=== PATIENT | male | born 1940 | race Caucasian/White ===

== ENCOUNTER 2021-07-17 19:48 | Observation (INO) | payer OTHER, MEDICAID ==
[~2021-07-17] VITALS: Ht 172.7 cm; Wt 57.2 kg
[2021-07-17 19:50] VITALS: BP 136/76
[2021-07-17 20:14] LABS: URINE BLOOD 1+ (Negative); URINE COLOR YELLOW; URINE GLUCOSE-RANDOM NEGATIVE (Negative); URINE KETONES 2+ (Negative); URINE LEUKOCYTES-REFLEX NEGATIVE (Negative); URINE NITRITE-REFLEX NEGATIVE (Negative); URINE PROTEIN NEGATIVE (Negative); URINE SPECIFIC GRAVITY 1.025 (1.005-1.030)
[2021-07-17 20:15] LABS: ICTOTEST (BILI CONFIRMATORY) Negative (Negative); URINE BILIRUBIN 1+ (Negative)
[2021-07-17 20:16] LABS: URINE CLARITY HAZY
[2021-07-17 20:22] LABS: SQUAMOUS 0-3 Few /LPF (0-3)
[2021-07-17 20:23] LABS: BACTERIA-REFLEX None Seen /HPF (None Seen); CASTS None Seen /LPF (None Seen); CRYSTALS None Seen /LPF (None Seen); MUCUS 4-6 Moderate strn/LPF (None Seen); URINE RBC 0-2 Rare /HPF (0-2); URINE WBC-REFLEX None Seen /HPF (0-5)
[2021-07-17 20:32] LABS: ABSOLUTE LYMPHOCYTES 0.5 thou/uL (0.8-5.3); ABSOLUTE MONOCYTES 0.3 thou/uL (0.0-1.2); ABSOLUTE NEUTROPHILS 3.4 thou/uL (1.6-8.1); BASOPHILS 0.7 %; EOSINOPHILS 1.2 %; HEMATOCRIT 37.6 % (42.0-52.0); HEMOGLOBIN 12.2 gm/dL (14.0-18.0); LYMPHOCYTES 11.7 %; MCH 31.8 pg (26.0-34.0); MCHC 32.4 g/dL (28.0-37.0); MONOCYTES 6.7 %; MPV 7.6 fl. (7.2-11.1); NUCLEATED RBCS 0 /100WBC; PLATELET COUNT* 270 thou/uL (150-400); POLYS 79.7 %; RBC 3.84 mil/uL (4.50-6.00); RDW-CV 13.9 % (10.5-14.5); WBC 4.2 thou/uL (4.0-11.0)
[2021-07-17] MEDS ORDERED: FOLIC ACID1 MG PO (20:34)
[2021-07-17] MEDS ORDERED: ARICEPT10 M1 PO (20:34)
[2021-07-17] MEDS ORDERED: ACETAMINOPHEN650 M5 PO (20:34)
[2021-07-17] MEDS ORDERED: NAMENDA 5 MG TAB5 M1 PO (20:35)
[2021-07-17] MEDS ORDERED: SEROQUEL 25 MG25 M1 PO (20:36)
[2021-07-17] MEDS ORDERED: CHILDREN'S ASPI81 M1 PO (20:40)
[2021-07-17] MEDS ORDERED: FLOMAX0.4 MG PO (20:40)
[2021-07-17 20:41] LABS: CALCIUM 8.8 mg/dL (8.5-10.1); CREATININE 1.8 mg/dL (0.6-1.3); POTASSIUM 4.3 mmol/L (3.5-5.1)
[2021-07-17] MEDS ORDERED: SYMBICORT160 MCG/4. INH (20:41)
[2021-07-17] MEDS ORDERED: MELATONIN3 MG PO (20:46)
[2021-07-17] MEDS ORDERED: PROBIOTIC1 EAC7 PO (20:47)
[2021-07-17] MEDS ORDERED: DOXYCYCLINE 10100 M2 PO (20:47)
[2021-07-17] MEDS ORDERED: MUCINEX600 MG PO (20:48)
[2021-07-17 20:51] LABS: MAGNESIUM 2.2 mg/dL (1.8-2.4); TOTAL BILIRUBIN 0.5 mg/dL (<0.1-1.0); TOTAL PROTEIN 6.7 g/dL (6.4-8.2)
[2021-07-17 20:55] LABS: BE -1.4 mmol/L (-2 to +3); PCO2 45.3 mmHg (35.0-45.0)
[2021-07-17 20:59] LABS: PO2 306.9 mmHg (75.0-100.0)
--- NOTE | 2021-07-17 21:10 | NUR ---
SPOKE WITH PATIENT'S SON, INFORMING HIM OF CURRENT SITUATION. SON IS GOING TO COME UP TO THE EMERGENCY ROOM.
--- NOTE | 2021-07-17 22:31 | NUR ---
DR. RODRIGUEZ SPOKE WITH THE PATIENT'S FAMILY. FAMILY WANTS TO HONOR THE DNR/DNI. DR. RODRIGUEZ STATES TO FAMILY WE WILL EXTUBATE THE PATIENT AND SEE HOW THE PATIENT RESPONDS.
--- NOTE | 2021-07-17 23:27 | NUR ---
PT EXTUBATED WITHOUT COMPLICATION.
[2021-07-18 01:00] VITALS: BP 133/64
[2021-07-18 05:00] VITALS: BP 125/50
[2021-07-18 10:26] VITALS: BP 119/58
--- NOTE | 2021-07-18 11:09 | EKG ---
[place] [address] ELECTROCARDIOGRAM REPORT Name: LESLIE JOSE Room: [address] M.R.#: [id number] Admission: 07/18/21 Attend Phys: Danilo Caballero Discharge: Date of : 38 Date of Service: 07/17/211952 Report #: [id number] THIS REPORT FOR: //name// [facility] ED Test Date: 2021-07-17 Test Time: 19:53:32 Pat Name: LESLIE JOSE Department: Room: [facility] Gender: M Filling Operator: ELENA : 1940 Requested By: Joana Gama Order Number: [id number] MD: Abdoul Medina Measurements Intervals [place] Rate: 93 P: 70 WV: 142 QRS: 75 QRSD: 90 T: 6 QT: 355 QTc: 442 Interpretive Statements Sinus rhythm Atrial premature complexes Borderline low voltage, extremity leads Nonspecific inferior ST-T abnormalities No previous ECG available for comparison Electronically Signed On 07-18-2021 11:09:17 CDT by Abdoul Medina [email or web address] <ELECTRONICALLY SIGNED> By: Abdoul Medina MD, [facility] 07/18/21 1109 [id number] 52 Abdoul Medina MD, [facility] /EPI
--- NOTE | 2021-07-18 14:41 | NUR ---
VERBAL ORDERS FROM DR. LEGER INCLUDE THAT THE PATIENT CAN BE DISCHARGED BACK TO [facility] ON HOSPICE CARE. CURRENTLY THE PATIENT IS [facility] OF 10.
--- NOTE | 2021-07-18 15:08 | NUR ---
LEIA AT [facility] WAS CONTACTED AND REPORT ON THE PATIENT WAS GIVEN. LEIA WAS TOLD THAT THE PATIENT IS BEING DISCHARGED BACK TO [facility] AND HOSPICE WILL BE SET UP FOR TUESDAY WITH THAT INFORMATION BEING SENT BACK WITH THE PATIENT. THE PATIENT'S SPOUSE IS AWARE OF THE PLAN OF CARE AND AGREES WITH IT. LEIA VOICES UNDERSTANDING OF PLAN OF CARE WELL.
[2021-07-18 15:10] VITALS: BP 134/61
[2021-07-18 15:17] VITALS: BP 134/61
[2021-07-18 17:14] VITALS: BP 124/69
== END 2021-07-20 17:14 ==
LOC: M.ERS 19:48 → M.TBA-ER 21:13 → M.ERS 21:13 → M.TBA-ER 07-18 02:02
PROVIDERS: Emergency Medicine; ADMIT Internal Medicine; ATTEND Internal Medicine
DX: J96.01 Acute respiratory failure with hypoxia (principal); J44.9 Chronic obstructive pulmonary disease, unspecified; Z20.822 Contact with and (suspected) exposure to COVID-19; F03.90 Unspecified dementia, unspecified severity, without behavioral disturbance, psychotic disturbance, mood disturbance, and anxiety; I25.10 Atherosclerotic heart disease of native coronary artery without angina pectoris; A41.9 Sepsis, unspecified organism; N40.0 Benign prostatic hyperplasia without lower urinary tract symptoms; G93.41 Metabolic encephalopathy; Z79.899 Other long term (current) drug therapy